=== PATIENT | male | born 1955 | race Caucasian/White ===

== ENCOUNTER → 2018-12-04 | Outpatient (CLI) | payer MEDICARE, OTHER ==
--- NOTE | 2018-12-04 09:13 | US ---
EXAMINATION TYPE: US duplex aorta DATE OF EXAM: 12/04/2018 COMPARISON: NONE CLINICAL HISTORY: 63-year-old male Z13.6 Screening For AAA. No hx of AAA, HTN controlled with meds, p revious smoker x 35 years ago, NPO TECHNIQUE: Multiple sonographic images of the abdominal aorta are obtained. MARKETING ADMINISTRATIVE ASSISTANT NOTES: Limited exam due to overlying bowel gas and patient body habitus FINDINGS: EXAM MEASUREMENTS: Abdominal Aorta: Proximal: 2.4 x 2.7 cm Mid: 2.0 x 2.2 cm Distal: 1.7 x 2.3 cm Bifurcation: Right - 1.5 x 1.0 cm Left - 1.3 x 1.0 cm Limited visualization of proximal and mid portion of Aorta. No AAA visualized in portions seen. IMPRESSION: Limited assessment due to bowel gas and patient body habitus. Visualized portions of the proximal abd ominal aorta suggest ectasia at 2.7 cm. Also, borderline ectasia of the right common iliac artery at 1.5 cm. No AAA seen.
== END | disposition home or self-care (01) ==
LOC: RADUSWWP 07:34
PROVIDERS: ATTEND Family Medicine
DX: I77.89 Other specified disorders of arteries and arterioles (principal)
CPT/HCPCS: 93979

== ENCOUNTER → 2020-11-18 | Outpatient (CLI) | payer MEDICARE, OTHER ==
--- NOTE | 2020-11-18 09:47 | US ---
EXAMINATION TYPE: US duplex aorta DATE OF EXAM: 11/18/2020 COMPARISON: Ultrasound AAA December 04, 2018 CLINICAL HISTORY: Z13.6 Screening AAA. no family history of AAA, no symptoms, large body habitus EXAM MEASUREMENTS: Abdominal Aorta: Proximal: not seen due to bowel gas Mid: 1.7 x 2.1cm Distal: 1.6 x 2.0cm Bifurcation: Rt = 1.0, Lt = 1.2cm Difficult to penetrate but no aneurysm noted on today's exam Suboptimal study but aorta is seen through the bifurcation. IMPRESSION: Suboptimal study without greater than 3.0 cm AAA. No significant change from prior.
== END | disposition home or self-care (01) ==
LOC: RADUSWWP 06:54
PROVIDERS: ATTEND Family Medicine
DX: Z13.6 Encounter for screening for cardiovascular disorders (principal)
CPT/HCPCS: 93979

== ENCOUNTER → 2023-12-07 | Outpatient (CLI) | payer MEDICARE, OTHER ==
[2023-12-07 14:54] LABS: ALT 18 U/L (10-49); AST 23 U/L (14-35); LDL Cholesterol,Calculated 39.9 mg/dL (0.0-131.0); VLDL Calculation 8.68 mg/dL (5.00-40.00)
== END | disposition home or self-care (01) ==
LOC: LABWHC1 07:58
PROVIDERS: ATTEND Internal Medicine Cardiovascular Disease
DX: E78.2 Mixed hyperlipidemia (principal)
CPT/HCPCS: 36415; 80061; 84450; 84460